=== PATIENT | male | born 1965 | race Caucasian/White ===

== ENCOUNTER 2018-06-18 04:29 | Emergency (ER) | payer MEDICAID ==
[~2018-06-18] VITALS: Ht 182.9 cm; Wt 105.7 kg
[~2018-06-18 04:29] MED LIST: ALBU18HF2 IH; CLON-527 PO; OMEP40CA37 PO; PROM25TA14 PO; QUET-1 PO
[2018-06-18 04:37] VITALS: BP 111/80
--- NOTE | 2018-06-18 05:15 | NUR ---
NO RESPONSE FROM LOBBY AFTER 3 ATTEMPTS TO ROOM. CALL PLACED TO NUMBER ON FILE. AUTOMATED MESSAGE NOT PATIENT'S NUMBER. DR CARRILLO INFORMED.
== END 2018-06-18 05:31 | disposition left against medical advice (07) ==
LOC: ER 04:30
DX: R45.851 Suicidal ideations (principal); Z53.21 Procedure and treatment not carried out due to patient leaving prior to being seen by health care provider

== ENCOUNTER 2018-06-20 11:47 | Emergency (ER) | payer MEDICAID ==
[~2018-06-20] VITALS: Ht 182.9 cm; Wt 105.4 kg
--- NOTE | 2018-06-20 12:08 | NUR ---
Called poison control regarding patients stated overdose of x15 tablets of 400 mg seroquil in morning around 1030. Earle from poison control states that symptoms are drowsiness and can become comatose. Monitor for hypotension, tachycardia, QT/QRS prolongation and seizures. Labs recommended Metabolic panel, ASA, tylenol. Peak for extended release is a minimum of 6 hour observation. Case #[id number] Addendum: 06/20/18 at 1212 by CRISTELA Also to draw a magnesium level.
--- NOTE | 2018-06-20 12:16 | NUR ---
Spoke with Dr. Becerra regarding recommendations.
[2018-06-20 12:33] LABS: BASOPHILS # (AUTO) 0.1 X10'3 (0-0.2); BASOPHILS % (AUTO) 0.9 % (0-1); EOSINOPHILS # (AUTO) 0.1 X10'3 (0-0.9); EOSINOPHILS % (AUTO) 1.2 % (0-6); HEMATOCRIT 34.1 % (42.0-52.0); HEMOGLOBIN 11.2 g/dl (14.0-17.9); LYMPHOCYTES # (AUTO) 1.5 X10'3 (1.1-4.8); LYMPHOCYTES % (AUTO) 19.1 % (21-51); MEAN CORPUSCULAR HEMOGLOBIN 26.9 PG (27.0-31.0); MEAN CORPUSCULAR HGB CONC 32.7 g/dL (33.0-36.5); MEAN CORPUSCULAR VOLUME 82.3 FL (78-98); MEAN PLATELET VOLUME 8.4 FL (7.4-10.4); MONOCYTES # (AUTO) 0.6 X10'3 (0-0.9); NEUTROPHILS # (AUTO) 5.6 X10'3 (1.8-7.7); NEUTROPHILS % (AUTO) 70.8 % (42-75); PLATELET COUNT 285 X10'3 (140-440); RED BLOOD COUNT 4.15 X10'6 (4.70-6.10); RED CELL DISTRIBUTION WIDTH 15.4 % (11.5-14.5); WHITE BLOOD COUNT 7.9 X10'3 (4.5-11.0)
--- NOTE | 2018-06-20 12:48 | NUR ---
BP 94/63 HR 95-DR ESPINOZA AWARE,NO NEW ORDER AT THIS TIME.
[2018-06-20 13:00] LABS: ALANINE AMINOTRANSFERASE 21 U/L (12-78); ALBUMIN 3.4 G/DL (3.4-5.0); ALBUMIN/GLOBULIN RATIO 0.8 (1.1-1.5); ALKALINE PHOSPHATASE 158 IU/L (46-116); ANION GAP 8 (8-16); ASPARTATE AMINO TRANSFERASE 20 U/L (10-37); BILIRUBIN,TOTAL 0.6 MG/DL (0.1-1.0); BLOOD UREA NITROGEN 19 MG/DL (7-18); BUN/CREATININE RATIO 16.7 (5.4-32.0); CALCIUM 9.1 MG/DL (8.5-10.1); CHLORIDE 100 MMOL/L (99-107); CREATININE 1.14 MG/DL (0.60-1.10); GLUCOSE 105 MG/DL (70-104); POTASSIUM 3.7 MMOL/L (3.5-5.1); SODIUM 134 MMOL/L (135-145); TOTAL CARBON DIOXIDE 26.2 MMOL/L (24-32); TOTAL PROTEIN 7.6 G/DL (6.4-8.2); eGFR 67 ML/MIN
[2018-06-20 13:12] LABS: MAGNESIUM 1.6 MG/DL (1.5-2.4)
[2018-06-20 13:13] LABS: ETHANOL < 0.010 GM/DL (0.0-0.010)
[2018-06-20 13:15] LABS: ACETAMINOPHEN < 2.0 UG/ML (10-30)
--- NOTE | 2018-06-20 13:31 | NUR ---
spoke to Eve/poison control,recommendations: repeat ekg at 1630-if QTC>500 treat patient with 2 gm iv mag, IF QRS >120 treat pateint with 50-100meq N[place].
[2018-06-20] MEDS ORDERED: BUME2TAB3 PO (13:42)
[2018-06-20] MEDS ORDERED: [UNRECOGNIZED DRUG - OTHER] INH (13:42)
[2018-06-20] MEDS ORDERED: ZAR2.5T PO (13:42)
[2018-06-20] MEDS ORDERED: TIOT18CA3 INH (13:42)
[2018-06-20] MEDS ORDERED: BUDE10.22 INH (13:42)
[2018-06-20] MEDS ORDERED: POTA20PA40 PO (13:42)
--- NOTE | 2018-06-20 17:03 | NUR ---
EKG done at 1656 QTC 385,QRS 116.
[2018-06-20 17:12] LABS: CLARITY,URINE CLEAR (Clear); COLOR,URINE STRAW (Yellow); GLUCOSE, URINE NEGATIVE (Neg); KETONES,URINE NEGATIVE (Neg); LEUKOCYTE ESTERASE ,URINE NEGATIVE (Neg); NITRITES, URINE NEGATIVE (Neg); OCCULT BLOOD,URINE NEGATIVE (Neg); PROTEIN,URINE NEGATIVE (Neg); UROBILINOGEN,URINE 0.2 E.U/dL (0.2-1.0)
[2018-06-20 17:14] LABS: UA COLLECTION TYPE CLN CATCH MIDSTREAM
--- NOTE | 2018-06-20 17:17 | NUR ---
patient asleep at this time.
[2018-06-20 17:22] LABS: URINE AMPHETAMINE SCREEN POSITIVE (Neg); URINE BARBITUATE SCREEN NEGATIVE (Neg); URINE BENZODIAZEPINES SCREEN NEGATIVE (Neg); URINE CANNABINOID SCREEN NEGATIVE (Neg); URINE COCAINE SCREEN NEGATIVE (Neg); URINE METHADONE SCREEN NEGATIVE (Neg); URINE OPIATE SCREEN NEGATIVE (Neg); URINE PHENCYCLIDINE SCREEN NEGATIVE (Neg)
--- NOTE | 2018-06-20 19:07 | NUR ---
after recieving report from Terese LEMUS, patient has continued to sleep. telepsych has not been done because of the patient's somnulence.
--- NOTE | 2018-06-20 21:55 | NUR ---
spoke to poison control. They stared that at this point they are closing his case because with two negative EKGs and not other signs or symptoms of adverse efects from a seroquel overdose.
--- NOTE | 2018-06-20 23:28 | NUR ---
PATIENT WOKE UP AND REQUESTED TO DO TELEPSYCH LATER AND WENT BACK TO BED. HE SAID HE FEELS WIERD STILL AFTER "TAKING ALL THOSE MEDS".
--- NOTE | 2018-06-21 10:00 | NUR ---
Woke up to eat breakfast and then back to sleep.
[2018-06-21] MEDS ORDERED: LORazepam 1 MG tablet PO ONE (14:40)
--- NOTE | 2018-06-21 14:45 | NUR ---
Pt requesting ativan which was given.
[2018-06-21] MEDS ORDERED: ipratropium/albuterol 3ml nebule NEB ONE (14:50)
--- NOTE | 2018-06-21 16:30 | NUR ---
Being evaluated by Zahida from [facility].
--- NOTE | 2018-06-22 02:24 | NUR ---
[facility] CALLS FOR INTIAL CONTACT. NURSE REPORTS SHE WILL CALL BACK WHEN DISCHARGES FROM THEIR UNIT COMPLETE.
--- NOTE | 2018-06-22 13:45 | NUR ---
PT CO THAT "I WILL FLIP OUT AND WALK OUT" IF I HAVE TO STAY IN THIS PLACE. SECURITY NOTIFIED AND IN OVERFLOW AT THIS TIME.
--- NOTE | 2018-06-22 13:46 | NUR ---
pt was put in room 27. pt states, i cant stay here, im going to flip out and walk out of here. i need a room i cant be here out in the open
[2018-06-22] MEDS ORDERED: haloperidol 5mg tablet PO ONE (13:55)
[2018-06-22] MEDS ORDERED: LORazepam 1 MG tablet PO ONE (13:55)
--- NOTE | 2018-06-22 13:55 | NUR ---
pt placed in room 27 and states, i cant be here in the open, i need a room. I'll flip out and walk out of here.
--- NOTE | 2018-06-22 13:58 | NUR ---
Renny ndiaye in [facility] - 06/22/18 at 1358 by LAN family and social media intern at bedside. family working on conservator
--- NOTE | 2018-06-22 14:15 | NUR ---
pt walking out of unit, states, im leaving. pt was diverted to room 14. niraj solomon. pt calmed down informed please see new orders.
[2018-06-22] MEDS ORDERED: diphenhydrAMINE 50 mg/ml inj IM ONE (14:20)
[2018-06-22] MEDS ORDERED: ketorolac tromethamine 15mg/ml inj. IM ONE (14:20)
--- NOTE | 2018-06-22 14:38 | NUR ---
1435 pt brought back to room 27, and states, i will be cooperative, but refuses meds at this time.
[2018-06-22] MEDS: haloperidol lactate 5mg/ml inj IM ONE ×2 (14:51→15:32)
--- NOTE | 2018-06-22 15:19 | NUR ---
pt wants his haldol im injection. order was non-amend and it was undone
[2018-06-22] MEDS ORDERED: haloperidol lactate 5mg/ml inj IM ONE (15:30)
--- NOTE | 2018-06-22 16:55 | NUR ---
PT IN RM 25 AND HER GRANDMOTHER OVERHEARD PT STATE, "SHES ALL MINE PANTIES AND ALL." PT AND GRANDMOTHER WERE VERY UNEASY ABOUT THIS COMMENT. INFORMED [facility] NURSE. RECOMMENDATION TO MOVE PT 25 TO ANOTHER BED.
--- NOTE | 2018-06-23 05:30 | NUR ---
pt resting comfortably on back. will continue to monitor.
[2018-06-23 05:55] VITALS: BP 123/91
[2018-06-23] MEDS ORDERED: proMETHazine 25mg tablet PO PRN (09:30)
[2018-06-23] MEDS ORDERED: clonazePAM 1mg tablet PO ONE (09:40)
[2018-06-23] MEDS ORDERED: albuterol 2.5 MG/3 ML nebule NEB PRN (09:40)
--- NOTE | 2018-06-23 10:00 | NUR ---
PT GIVEN SNACKS WHEN REQUESTED BY PT.
--- NOTE | 2018-06-23 11:40 | NUR ---
[facility] CALLS TO UPDATE THAT PT WILL BE GOING TO [facility] AT 1530 TODAY.
[2018-06-23] MEDS ORDERED: haloperidol lactate 5mg/ml inj IM ONE (12:50)
[2018-06-23] MEDS ORDERED: LORazepam 2 mg/ml vial IM ONE (12:50)
[2018-06-23] MEDS ORDERED: diphenhydrAMINE 50 mg/ml inj IM ONE (12:50)
--- NOTE | 2018-06-23 13:01 | NUR ---
PT THREATENING TO LEAVE, WANTS TO SMOKE, USING [employer] LANGUAGE, NOTIFY DR CASTILLO, ORDERS RECEIVED. CALL SECURITY FOR STANDBY WHILE GIVING MEDICATION. PT IS COOPERATIVE WITH GETTING IM SHOT.
--- NOTE | 2018-06-23 15:28 | NUR ---
PT HAS BEEN SLEEPING SINCE EATING AND GETTING THE HALDOL SHOT. [facility] FLAKE OR [place] [place] OPERATOR ARRIVES TO TAKE [facility]
--- NOTE | 2018-06-23 15:49 | NUR ---
PT REFUSED THE MEDICATIONS OFFERED PRIOR TO HIS LEAVING FOR [facility]. PT'S BELONGINGS SENT WITH PILOT MANAGER. ALSO MEDICATIONS RETREIVED FROM PHARMACY AND SENT ALONG WITH PT. PT IS DRESSED AND ESCORTED OUT TO [facility].
[2018-06-23] MEDS ORDERED: clonazePAM 1mg tablet PO SCH (20:00)
[2018-06-23] MEDS ORDERED: quetiapine 100mg tablet PO SCH (21:00)
[2018-06-24] MEDS ORDERED: pantoprazole 40mg Tablet.DR PO SCH (08:00)
== END 2018-06-23 15:58 ==
LOC: ER 11:47
DX: F32.9 Major depressive disorder, single episode, unspecified (principal); R45.851 Suicidal ideations; K21.9 Gastro-esophageal reflux disease without esophagitis; F41.9 Anxiety disorder, unspecified; F20.9 Schizophrenia, unspecified; F15.90 Other stimulant use, unspecified, uncomplicated; F17.200 Nicotine dependence, unspecified, uncomplicated; G89.29 Other chronic pain; Z90.49 Acquired absence of other specified parts of digestive tract; Z86.711 Personal history of pulmonary embolism; Z88.8 Allergy status to other drugs, medicaments and biological substances; Z79.899 Other long term (current) drug therapy
CPT/HCPCS: 36415; 80053; 80305; 80320; 80329; 81003; 83735; 84443; 85025; 93005; 94640; 96372; 99285; J1200; J1630; J2060